=== PATIENT | male | born 1955 | race African-American/Black ===

== ENCOUNTER 2024-05-27 12:26 | Emergency (ER) | payer OTHER ==
[~2024-05-27] VITALS: Ht 185.4 cm; Wt 114.0 kg
[2024-05-27] MEDS ORDERED: LIDOCAINE HCL 1% 20ML VIAL INFIL ONE (12:30)
[2024-05-27 12:48] VITALS: TEMP 98.6; O2SAT 99
[2024-05-27] MEDS: TETANUS, DIPHTHERIA, PERTUSSIS VAC/PF 0.5ML (>10YR OLD) IM ONE (13:27)
[2024-05-27] MEDS ORDERED: HYDROMORPHONE HCL/PF 2MG/ML INJ IV ONE ×3 (13:30→16:30)
[2024-05-27] MEDS: LIDOCAINE HCL 1% 20ML VIAL INFIL ONE (13:43)
[2024-05-27] MEDS: HYDROMORPHONE HCL/PF 1MG/ML INJ IV NR ×2 (13:44→17:28)
[2024-05-27] MEDS ORDERED: CEFEPIME 1GM IN DEXT 5% 50ML IV ONE (16:15)
[2024-05-27 17:17] LABS: BASOPHILS % 0.4 % (0.0-2.0); EOSINOPHILS % 0.5 % (0.0-5.0); HEMATOCRIT. 38.3 % (42.0-52.0); HEMOGLOBIN. 12.5 g/dL (14.0-18.0); LYMPHOCYTES % 18.3 % (20.0-50.0); MEAN CORPUSCULAR HEMOGLOBIN 29.1 pg (28.0-32.0); MEAN CORPUSCULAR HGB CONC 32.7 g/dL (31.0-37.0); MEAN PLATELET VOLUME 7.4 fl (7.4-10.4); MONOCYTES % 2.9 % (2.0-8.0); NEUTROPHILS % 77.9 % (40.0-76.0); PLATELET 296 x1000/uL (130-400); RED CELL DISTRIBUTION WIDTH 14.6 % (11.6-14.6)
[2024-05-27 17:20] LABS: POTASSIUM 5.2 mEq/L (3.5-5.1)
[2024-05-27 17:21] LABS: CALCIUM 9.5 mg/dL (8.7-10.4)
[2024-05-27 17:25] LABS: PARTIAL THROMBOPLASTIN TIME 29.1 sec (23.4-31.0); PROTHROMBIN TIME 11.1 sec (9.6-11.0)
[2024-05-27 17:26] LABS: CREATININE 2.1 mg/dL (0.6-1.3)
[2024-05-27] MEDS: CEFEPIME 1GM/50ML 50 ML IV NR (17:28)
[2024-05-27] MEDS ORDERED: LIDOCAINE HCL 1% 20ML VIAL INFIL NR (18:45)
[2024-05-27] MEDS ORDERED: MAGNESIUM/ALUMINUM HYDROXIDE/SIMETHICONE 30ML UDC PO PRN (19:30)
[2024-05-27] MEDS ORDERED: ONDANSETRON HCL 4MG/2ML INJ IV PRN (19:30)
[2024-05-27] MEDS ORDERED: GUAIFENESIN 200MG/10ML SUGAR FREE UDC PO PRN (19:30)
[2024-05-27] MEDS ORDERED: DEXTROSE 50% WATER 50ML SYRINGE IV PRN (19:30)
[2024-05-27] MEDS ORDERED: IPRATROPIUM/ALBUTEROL 0.5-3(2.5)MG/3ML NEB NEB PRN (19:30)
[2024-05-27] MEDS ORDERED: DOCUSATE SODIUM 100MG CAPSULE PO PRN (19:30)
[2024-05-27] MEDS ORDERED: NITROGLYCERIN 0.4MG TABLET SL SL PRN (19:30)
[2024-05-27] MEDS ORDERED: HYDROCODONE/ACETAMINOPHEN 10/325MG TABLET PO PRN (19:30)
[2024-05-27] MEDS ORDERED: ACETAMINOPHEN 325MG TABLET PO PRN ×2 (19:30)
[2024-05-27] MEDS ORDERED: CLONIDINE 0.1MG TABLET PO PRN (19:30)
[2024-05-27] MEDS ORDERED: SULF1TAB48 MT (19:34)
[2024-05-27] MEDS ORDERED: CIPR-263 MT (19:34)
[2024-05-27 20:01] LABS: IRON 63 ug/dL (65-175)
[2024-05-27 20:02] LABS: TRIGLYCERIDE 111 mg/dL (0-150)
[2024-05-27 20:03] LABS: LDL CHOLESTEROL 51 mg/dL (5-100)
[2024-05-27 20:04] LABS: CHOLESTEROL 110 mg/dL (<200); HDL CHOLESTEROL 36 mg/dL (>55); TOTAL IRON BINDING CAPACITY 188 ug/dl (250-425)
[2024-05-27 20:07] LABS: FOLIC ACID (FOLATE) SERUM 14.11 ng/mL (>5.38); VITAMIN B12 SERUM 596 pg/mL (211-911)
[2024-05-27 20:08] LABS: T4 FREE 1.06 ng/dL (0.89-1.76); THYROID STIMULATING HORMONE 1.53 uIU/mL (0.55-4.78)
[2024-05-27] MEDS ORDERED: NAPR500T7 MT (20:17)
[2024-05-27] MEDS ORDERED: HYDR-4001 MT (20:17)
[2024-05-27] MEDS: KETOROLAC 15MG/ML VIAL IV ONE (20:32)
[2024-05-27] MEDS: HYDROCODONE/ACETAMINOPHEN 5/325MG TABLET PO ONE (20:32)
[2024-05-27] MEDS ORDERED: VANCOMYCIN 2,000 MG in DEXT 5% WATER 500 ML IV NR (21:00)
[2024-05-27] MEDS ORDERED: FAMOTIDINE 20MG TABLET PO SCH (21:00)
[2024-05-27] MEDS ORDERED: BLOOD SUGAR DIAGNOSTIC STRIP TEST SCH (21:00)
[2024-05-27] MEDS ORDERED: ZOLPIDEM TARTRATE 5MG TABLET PO PRN (21:00)
[2024-05-27] MEDS ORDERED: INSULIN LISPRO 100 UNITS/ML SUBCUT SCH (21:00)
[2024-05-27] MEDS ORDERED: ASCORBIC ACID 500 MG TABLET PO SCH (21:00)
[2024-05-27] MEDS ORDERED: ENOXAPARIN 30MG/0.3ML SYR SUBCUT SCH (21:00)
[2024-05-27 21:34] VITALS: BP 122/76; PULSE 76; RESP 17; O2SAT 95
[2024-05-27] MEDS ORDERED: MEROPENEM 1G/100ML 100 ML IV SCH (22:00)
[2024-05-28] MEDS ORDERED: ZINC SULFATE 220 MG ( 50 ) CAPSULE PO SCH (09:00)
[2024-05-28] MEDS ORDERED: AMLODIPINE 10MG TABLET PO SCH (09:00)
== END 2024-05-27 21:42 | disposition home or self-care (01) ==
LOC: ER 12:26
DX: S90.851A Superficial foreign body, right foot, initial encounter (principal); L03.115 Cellulitis of right lower limb; E11.9 Type 2 diabetes mellitus without complications; I25.2 Old myocardial infarction; I11.9 Hypertensive heart disease without heart failure; X58.XXXA Exposure to other specified factors, initial encounter; Y93.89 Activity, other specified; Y92.89 Other specified places as the place of occurrence of the external cause; Y99.8 Other external cause status
CPT/HCPCS: 99285; 96365; 96375; 80061; 80048; 82607; 82746; 83036; 84439; 83540; 83550; 84443; 85025; 85610; 85730; 86850; 86900; 86901; 36415; 73620; 73630; 90715; 90471; 96376; J0692; J1885; J3490; J1170; J2185; J3370; J7060